=== PATIENT | male | born 1990 | race African-American/Black ===

== ENCOUNTER 2017-04-26 18:58 | Emergency (ER) | payer SELFPAY ==
[2017-04-26 19:12] VITALS: BP 156/78; PULSE 82; TEMP 97.9; BMI 24.9
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
== END 2017-04-26 21:18 | disposition home or self-care (01) ==
LOC: JERFT 18:58
DX: M79.601 Pain in right arm (principal); Z87.828 Personal history of other (healed) physical injury and trauma; W34.09XS Accidental discharge from other specified firearms, sequela
CPT/HCPCS: 73060-TC-RT; 73070-TC-RT; 73090-TC-RT; 99281-25

== ENCOUNTER 2023-04-02 14:56 | Emergency (ER) | payer OTHER ==
[2023-04-02 15:08] VITALS: BP 132/84; PULSE 68; RESP 18; TEMP 97.9; BMI 26.5
[2023-04-02] MEDS ORDERED: TETRACAINE 0.5% OPHTH SOLN 2 ML BOTTLE OD ONE (15:38)
[2023-04-02] MEDS ORDERED: TETRACAINE 0.5% OPHTH SOLN 2 ML BOTTLE ONE (15:47)
== END 2023-04-02 16:13 | disposition home or self-care (01) ==
LOC: JER 14:56
DX: S05.01XA Injury of conjunctiva and corneal abrasion without foreign body, right eye, initial encounter (principal); H10.31 Unspecified acute conjunctivitis, right eye; H57.11 Ocular pain, right eye; H04.201 Unspecified epiphora, right side
CPT/HCPCS: 99283-25